=== PATIENT | female | born 2000 | race Hispanic/Latino ===

== ENCOUNTER 2020-02-10 09:38 | Emergency (ER) | payer OTHER ==
[2020-02-10 10:41] LABS: Urine Blood NEGATIVE (NEG); Urine Glucose NEGATIVE (NEG); Urine Protein NEGATIVE (NEG); Urine Specific Gravity 1.025 (1.005-1.030); Urine pH 7.5 (5.0-7.0)
[2020-02-10 10:51] LABS: Absolute Lymphocytes (CBC) 1.4 K/uL (0.7-4.9); Basophils % 0.2 % (0-1.3); MPV 10.5 fL (7.6-11.3); RBC Red Blood Cell Count 4.71 M/uL (3.86-4.86)
[2020-02-10 10:57] LABS: ALT/SGPT 22 U/L (12-78); AST/SGOT 13 U/L (15-37); Albumin 3.9 g/dL (3.4-5.0); Alkaline Phosphatase 74 U/L (45-117); BUN Blood Urea Nitrogen 12 mg/dL (7-18); Bicarbonate 28 mmol/L (21-32); Bilirubin Direct < 0.1 mg/dL (0-0.2); Bilirubin Total 0.4 mg/dL (0.2-1.0); Glucose Level 92 mg/dL (74-106); Lipase 111 U/L (73-393); Potassium 3.8 mmol/L (3.5-5.1); Sodium Level 141 mmol/L (136-145)
[2020-02-10] MEDS ORDERED: ONDANSETRON 4 MG/2 ML VIAL ONE (11:42)
[2020-02-10] MEDS ORDERED: MORPHINE 4 MG/ML SYR ONE ×2 (11:42→13:03)
--- NOTE | 2020-02-10 13:17 | RAD REPORT ---
EXAM DESCRIPTION: CTAbdomen Pelvis W Contrast - 02/10/2020 1:07 pm CLINICAL HISTORY: Abdominal pain. ABD PAIN COMPARISON: No comparisons TECHNIQUE: Biphasic CT imaging of the abdomen and pelvis was performed with 100 ml non-ionic IV cont rast. All CT scans are performed using dose optimization technique as appropriate and may include automated exposure control or mA/KV adjustment according to patient size. FINDINGS: The lung bases are clear. The liver, spleen, pancreas, adrenal glands and kidneys are within normal limits. No bowel obstruction, free air, free fluid or abscess. Significant fecal retention in the colon. The appendix is normal. No evidence of significant lymphadenopathy. No suspicious bony findings. IMPRESSION: Significant fecal retention.
--- NOTE | 2020-02-10 13:46 | EDPHYS ---
Physician Documentation [facility] Name: Mariama Mckeon Age: 19 yrs Sex: Female : 2000 Arrival Date: 02/10/2020 Time: 09:41 Bed 20 Private MD: ED Physician Steven Thurston HPI: 02/09 11:47 This 19 yrs old Female presents to ER via Wheelchair with complaints of R/O jr8 APPENDICITIS. 11:47 The patient presents with abdominal pain in the lower abdomen. Onset: The jr8 symptoms/episode began/occurred acutely, yesterday. The symptoms do not radiate. Associated signs and symptoms: none. The symptoms are described as crampy. Modifying factors: The symptoms are alleviated by nothing, the symptoms are aggravated by nothing. Severity of pain: At its worst the pain was moderate in the emergency department the pain is unchanged. It is unknown whether or not the patient has had similar symptoms in the past. The patient has not recently seen a physician. Patient stated that she had appendectomy in past but stated that they were not able to get all of it as it was adhered to her colon. Stated that she is now having similar pain from what she felt in the past. [employer]: 10:05 LMP 01/21/2020 ca1 Historical: - Allergies: 10:05 No Known Allergies; ca1 - Home Meds: 10:05 None [Active]; ca1 - PMHx: 10:05 None; ca1 - PSHx: 10:05 Appendectomy; ca1 - Immunization history:: Adult Immunizations up to date. - Social history:: Smoking status: Patient denies any tobacco usage or history of. ROS: 11:47 Eyes: Negative for injury, pain, redness, and discharge, ENT: Negative for injury, jr8 pain, and discharge, Neck: Negative for injury, pain, and swelling, Cardiovascular: Negative for chest pain, palpitations, and edema, Respiratory: Negative for shortness of breath, cough, wheezing, and pleuritic chest pain, Back: Negative for injury and pain, MS/Extremity: Negative for injury and deformity, Skin: Negative for injury, rash, and discoloration, Neuro: Negative for headache, weakness, numbness, tingling, and seizure. 11:47 Abdomen/GI: Positive for abdominal pain, abdominal cramps, Negative for nausea, vomiting, and diarrhea, abdominal distension, anorexia, dysphagia, hematemesis, black/tarry stool, rectal pain, rectal bleeding, bowel incontinence, flatulence. Exam: 11:47 Eyes: Pupils equal round and reactive to light, extra-ocular motions intact. Lids and jr8 lashes normal. Conjunctiva and sclera are non-icteric and not injected. Cornea within normal limits. Periorbital areas with no swelling, redness, or edema. ENT: Nares patent. No nasal discharge, no septal abnormalities noted. Tympanic membranes are normal and external auditory canals are clear. Oropharynx with no redness, swelling, or masses, exudates, or evidence of obstruction, uvula midline. Mucous membranes moist. Neck: Trachea midline, no thyromegaly or masses palpated, and no cervical lymphadenopathy. Supple, full range of motion without nuchal rigidity, or vertebral point tenderness. No Meningismus. Cardiovascular: Regular rate and rhythm with a normal S1 and S2. No gallops, murmurs, or rubs. Normal PMI, no JVD. No pulse deficits. Respiratory: Lungs have equal breath sounds bilaterally, clear to auscultation and percussion. No rales, rhonchi or wheezes noted. No increased work of breathing, no retractions or nasal flaring. Back: No spinal tenderness. No costovertebral tenderness. Full range of motion. Skin: Warm, dry with normal turgor. Normal color with no rashes, no lesions, and no evidence of cellulitis. MS/ Extremity: Pulses equal, no cyanosis. Neurovascular intact. Full, normal range of motion. Neuro: Awake and alert, GCS 15, oriented to person, place, time, and situation. Cranial nerves II-XII grossly intact. Motor strength 5/5 in all extremities. Sensory grossly intact. Cerebellar exam normal. Normal gait. 11:47 Abdomen/GI: Inspection: abdomen appears normal, Bowel sounds: active, all quadrants, Palpation: soft, in all quadrants, moderate abdominal tenderness, in the suprapubic area and right lower quadrant, mass, is not appreciated, rebound tenderness, is not appreciated, voluntary guarding, is not appreciated, involuntary guarding, is not appreciated, no appreciated organomegaly, Indicators: McBurney's point is tender, Crews's sign is negative, Rovsing's sign is positive, Liver: tenderness, is not appreciated. Vital Signs: 10:00 BP 122 / 79; Pulse 88; Resp 18 S; Temp 98.1(TE); Pulse Ox 99% on R/A; Weight 56.7 kg ca1 (R); Height 5 ft. 8 in. (172.72 cm) (R); Pain 9/10; 11:30 BP 125 / 73; Pulse 70; Resp 15; Pulse Ox 100% ; Pain 9/10; jl7 13:00 BP 120 / 86; Pulse 90; Resp 15; Pulse Ox 100% ; jl7 10:00 Body Mass Index 19.01 (56.70 kg, 172.72 cm) ca1 MDM: 10:10 Patient medically screened. jr8 13:42 Data reviewed: vital signs, nurses notes, lab test result(s), radiologic studies, CT jr8 scan. Data interpreted: Pulse oximetry: on room air is 100 %. Interpretation: normal. 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 ED course: Discussed with patient that there are no surgically emergent findings on CT but that she does have marked fecal retention. Needs to increase fluids and fiber daily. Will put on Miralax. 02/09 10:20 Order name: Basic Metabolic Panel; Complete Time: 11: [facility] 02/09 10:20 Order name: CBC with Diff; Complete Time: 11: [facility] 02/09 10:20 Order name: Hepatic Function; Complete Time: 11: 02/09 10:20 Order name: Lipase; Complete Time: 11: [facility] 02/09 10:23 Order name: Urine Dipstick--Ancillary (enter results); Complete Time: 11: 02/09 10:23 Order name: Urine --Ancillary (enter results); Complete Time: 11: 02/09 10:20 Order name: IV Saline Lock; Complete Time: [facility] 02/09 10:20 Order name: Labs collected and sent; Complete Time: [facility] 02/09 11:11 Order name: CT Abd/Pelvis - IV Contrast Only; Complete Time: 13:19 jr8 Administered Medications: 11:30 Drug: Zofran (Ondansetron) 4 mg Route: IVP; Site: left antecubital; jl7 11:53 Follow up: Response: No adverse reaction jl7 11:32 Drug: morphine 4 mg Route: IVP; Site: left antecubital; jl7 11:53 Follow up: Response: No adverse reaction; Pain is decreased jl7 13:00 Drug: morphine 4 mg Route: IVP; Site: left antecubital; jl7 13:25 Follow up: Response: No adverse reaction; Pain is decreased jl7 Disposition: 14:21 Co-signature as Attending Physician, Steven Thurston MD. rn Disposition: 02/10/20 13:45 Discharged to Home. Impression: Constipation. - Condition is Stable. - Discharge Instructions: Constipation, Adult. - Prescriptions for Miralax 17 gram/dose Oral - take 1 packet by ORAL route once daily dilute powder in 8 ounces of water or juice; 1 box. - Medication Reconciliation Form, Thank You Letter, Antibiotic Education, Prescription Opioid Use form. - Follow up: Private Physician; When: 1 week; Reason: Recheck today's complaints, Continuance of care, Re-evaluation by your physician. - Problem is new. - Symptoms have improved. Signatures: Dispatcher [employer] EDMS Steven Thurston MD MD rn Roszak, Josh, PA PA jr8 Marcus Jones RN RN jl7 Ute Mckeon RN RN ca1 Corrections: (The following items were deleted from the chart) 14:02 13:45 02/10/2020 13:45 Discharged to Home. Impression: Constipation. Condition is jl7 Stable. Forms are Medication Reconciliation Form, Thank You Letter, Antibiotic Education, Prescription Opioid Use. Follow up: Private Physician; When: 1 week; Reason: Recheck today's complaints, Continuance of care, Re-evaluation by your physician. Problem is new. Symptoms have improved. jr8
--- NOTE | 2020-02-10 13:46 | ER ---
Nurse's Notes [facility] Name: Mariama Mckeon Age: 19 yrs Sex: Female : 2000 Arrival Date: 02/10/2020 Time: 09:41 Bed 20 Private MD: Diagnosis: Constipation Presentation: 02/09 10:00 Chief complaint: Patient states: Abdominal cramping since 3 days ago, constant, ca1 non-radiating, worse today. Reports pain on RLQ. States, "I had appendicitis before and they cannot remove all of it cause it was infused onto my colon and they said it could come back and it feels like it" Reports constipation. Denies N/V. Denies urinary symptoms. Denies fever. Coronavirus screen: Client denies travel out of the [place] in the last 14 days. At this time, the client does not indicate any symptoms associated with coronavirus-19. The client reports previous COVID testing was negative. Date of collection: February 08, 2020. Ebola Screen: Patient negative for fever greater than or equal to 101.5 degrees Fahrenheit, and additional compatible Ebola Virus Disease symptoms Patient denies exposure to infectious person. Patient denies travel to an Ebola-affected area in the 21 days before illness onset. No symptoms or risks identified at this time. Initial Sepsis Screen: Does the patient meet any 2 criteria? No. Patient's initial sepsis screen is negative. Does the patient have a suspected source of infection? No. Patient's initial sepsis screen is negative. Risk Assessment: Do you want to hurt yourself or someone else? Patient reports no desire to harm self or others. Onset of symptoms was February 10, 2020. 10:00 Method Of Arrival: Wheelchair ca1 10:00 Acuity: JOHNATHAN 3 ca1 [employer]: 10:05 LMP 01/21/2020 ca1 Historical: - Allergies: 10:05 No Known Allergies; ca1 - Home Meds: 10:05 None [Active]; ca1 - PMHx: 10:05 None; ca1 - PSHx: 10:05 Appendectomy; ca1 - Immunization history:: Adult Immunizations up to date. - Social history:: Smoking status: Patient denies any tobacco usage or history of. Screenin:31 Abuse screen: Denies threats or abuse. Denies injuries from another. Nutritional jl7 screening: No deficits noted. Tuberculosis screening: No symptoms or risk factors identified. Fall Risk IV access (20 points). Total Mckeon Fall Scale indicates No Risk (0-24 pts). Assessment: 10:31 General: Appears in no apparent distress. uncomfortable, Behavior is cooperative, jl7 appropriate for age, anxious. Pain: Complains of pain in right lower quadrant Pain currently is 9 out of 10 on a pain scale. Quality of pain is described as crampy, Pain began 2-3 days ago. Is continuous. Neuro: Level of Consciousness is awake, alert, obeys commands, Oriented to person, place, time, situation. Cardiovascular: Patient's skin is warm and dry. Respiratory: Airway is patent Respiratory effort is even, unlabored, Respiratory pattern is regular, symmetrical. GI: Abdomen is flat, non-distended, Last BM was February 07, 2020. Reports constipation, Patient currently denies diarrhea, nausea, vomiting. 11:30 Reassessment: Pt finished drinking contrast, CT notified. jl7 11:36 Reassessment: Patient appears in no apparent distress at this time. No changes from jl7 previously documented assessment. Patient and/or family updated on plan of care and expected duration. Pain level reassessed. Patient is alert, oriented x 3, equal unlabored respirations, skin warm/dry/pink. 11:53 Reassessment: Reports decreased pain, rated 3/10 at this time. jl7 12:55 Reassessment: Pt reports increased pain, ERP notified, see MAR for orders. jl7 13:25 Reassessment: Patient appears in no apparent distress at this time. Patient is alert, jl7 oriented x 3, equal unlabored respirations, skin warm/dry/pink. pain decreased Patient states symptoms have improved. Vital Signs: 10:00 BP 122 / 79; Pulse 88; Resp 18 S; Temp 98.1(TE); Pulse Ox 99% on R/A; Weight 56.7 kg ca1 (R); Height 5 ft. 8 in. (172.72 cm) (R); Pain 9/10; 11:30 BP 125 / 73; Pulse 70; Resp 15; Pulse Ox 100% ; Pain 9/10; jl7 13:00 BP 120 / 86; Pulse 90; Resp 15; Pulse Ox 100% ; jl7 10:00 Body Mass Index 19.01 (56.70 kg, 172.72 cm) ca1 ED Course: 09:41 Patient arrived in ED. ag5 10:05 Triage completed. ca1 10:05 Arm band placed on right wrist. ca1 10:09 Marcus Jones RN is Primary Nurse. jl7 10:10 Jericho Stokes PA is PHCP. jr8 10:10 Steven Thurston MD is Attending Physician. jr8 10:31 Patient has correct armband on for positive identification. Placed in gown. Bed in low jl7 position. Call light in reach. Side rails up X 1. Pulse ox on. NIBP on. Warm blanket given. 10:31 Initial lab(s) drawn, by me, sent to lab. Urine collected: clean catch specimen, jl7 cloudy. Inserted saline lock: 20 gauge in left antecubital area, using aseptic technique. Blood collected. 13:07 CT Abd/Pelvis - IV Contrast Only In Process Unspecified. EDMS 14:01 No provider procedures requiring assistance completed. IV discontinued, intact, jl7 bleeding controlled, No redness/swelling at site. Pressure dressing applied. Administered Medications: 11:30 Drug: Zofran (Ondansetron) 4 mg Route: IVP; Site: left antecubital; jl7 11:53 Follow up: Response: No adverse reaction jl7 11:32 Drug: morphine 4 mg Route: IVP; Site: left antecubital; jl7 11:53 Follow up: Response: No adverse reaction; Pain is decreased jl7 13:00 Drug: morphine 4 mg Route: IVP; Site: left antecubital; jl7 13:25 Follow up: Response: No adverse reaction; Pain is decreased jl7 Outcome: 13:45 Discharge ordered by . jr8 14:01 Discharged to home ambulatory. jl7 14:01 Condition: stable 14:01 Discharge instructions given to patient, Instructed on discharge instructions, follow up and referral plans. medication usage, Demonstrated understanding of instructions, follow-up care, medications, Prescriptions given X 1. 14:02 Patient left the ED. jl7 Signatures: Dispatcher [employer] EDMS Jericho Stokes PA PA jr8 Marcus Jones RN RN jl7 Ute Mckeon RN RN ca1 Herbie Blakely ag5
[2020-02-10 14:10] VITALS: TEMP 98.1
[2020-02-10 14:13] VITALS: O2SAT 100
[2020-02-10 14:14] VITALS: BP 120/86
== END 2020-02-10 14:02 | disposition home or self-care (01) ==
LOC: ER 09:38
DX: K59.00 Constipation, unspecified (principal)
CPT/HCPCS: 85025; 80048; 36415; 81025; 80076; 81003; 83690; 74177; 96375; 96374; 99284; Q9967; J2405